=== PATIENT | female | born 1955 | race Caucasian/White ===

== ENCOUNTER → 2016-04-21 | Outpatient (CLI) | payer MEDICARE, OTHER ==
--- NOTE | 2016-04-21 12:49 | WOMENS IMAGING REPORT ---
EXAM DESCRIPTION: BILAT SCREENING MAMMO W/CAD COMPLETED DATE/TIME: 04/21/2016 10:03 am REASON FOR STUDY: Z12.31 ROUTINE SCREENING MAMMO Z12.31 ENCNTR SCREEN MAMMOGRAM FOR MALIGNANT NEOPL ASM OF CHARO COMPARISON: Multiple since 2008 TECHNIQUE: Standard craniocaudal and mediolateral oblique views of each breast recorded using OpenTexta l acquisition. LIMITATIONS: None. FINDINGS: Findings present which are benign by mammographic criteria. No suspicious masses, calcifi cations or architectural distortion. Read with the assistance of CAD. .[facility] - R2 Cenova Version 1.3 .[facility] Imaging - R2 Cenova Version 1.3 .[facility] Imaging - R2 Cenova Version 2.4 .[facility] [place] R2 Cenova Version 2.4 .[facility] - R2 Pe Electrical Engineer Version 9.2 Benign mammographic findings may include one or more of the following: Smooth masses, popcorn/rim/co arse calcifications, asymmetries, post-procedure changes, and lesions with long-standing stability. BREAST DENSITY: b. There are scattered areas of fibroglandular density. BIRAD: 2 BENIGN FINDING(S) RECOMMENDATION: ROUTINE SCREENING COMMENT: PATIENT NOTIFIED BY LETTER. The [employer] recommends an annual screening mammogram for women aged 40 years or over. Each patient will receive a reminder prior to the anniversary date of her mammogram. The [employer] (ACR) has developed recommendations for screening MRI of the breast s in certain patient populations, to be used in conjunction with mammography. Breast MRI surveillanc e may be appropriate for women with more than 20% lifetime risk of developing breast cancer as deter mined by genetic testing, significant family history of the disease, or history of mantle radiation f or Hodgkins Disease. ACR Practice Guidelines 2008. TECHNICAL DOCUMENTATION: FINDING NUMBER: (1) ASSESSMENT: (1) JOB ID: [id number] [id number] [employer]- All Rights Reserved
== END ==
LOC: WI 09:48
PROVIDERS: ATTEND Family Medicine
DX: Z12.31 Encounter for screening mammogram for malignant neoplasm of breast (principal)
CPT/HCPCS: 77067; G0202

== ENCOUNTER → 2018-04-20 | Outpatient (CLI) | payer MEDICARE, OTHER ==
--- NOTE | 2018-04-20 10:59 | WOMENS IMAGING REPORT ---
EXAM DESCRIPTION: 3D SCREENING MAMMO BILAT COMPLETED DATE/TIME: 04/20/2018 10:36 am REASON FOR STUDY: SCREENING MAMMO Z12.31 ENCNTR SCREEN MAMMOGRAM FOR MALIGNANT NEOPLASM OF CHARO COMPARISON: 04/21/2016 and 04/15/2015. TECHNIQUE: Standard craniocaudal and mediolateral oblique views of each breast recorded using digita l acquisition and breast tomosynthesis. LIMITATIONS: None. FINDINGS: Findings present which are benign by mammographic criteria. No suspicious masses, calcifi cations or architectural distortion. Pertinent benign findings: Benign calcifications. Read with the assistance of CAD. .[facility] - R2 Cenova Version 1.3 .[facility] Imaging - R2 Cenova Version 1.3 .[facility] Imaging - R2 Cenova Version 2.4 .[facility] - R2 Cenova Version 2.4 .[facility] - R2 Pen Tender Version 9.2 Benign mammographic findings may include one or more of the following: Smooth masses, popcorn/rim/co arse calcifications, asymmetries, post-procedure changes, and lesions with long-standing stability. IMPRESSION: BENIGN MAMMOGRAPHIC FINDINGS. BIRADS 2 BREAST DENSITY: a. The breasts are almost entirely fatty. BIRAD: 2 BENIGN FINDING(S) RECOMMENDATION: RECOMMENDATION: ROUTINE SCREENING COMMENT: The patient has been notified of the results by letter per [place] requirements. Additional no tification policies are in place for contacting patient with suspicious or incomplete findings. Quality ID #[id number]: The [employer] [employer] recommends an annual screening mammogram for women aged 40 years or over. This facility utilizes a reminder system to ensure that all patients receive reminder letters, and/or direct phone calls for appointments. This includes reminders for routine scr eening mammograms, diagnostic mammograms, or other Breast Imaging Interventions when appropriate. Th is patient will be placed in the appropriate reminder system. The [employer] (ACR) has developed recommendations for screening MRI of the breast s in certain patient populations, to be used in conjunction with mammography. Breast MRI surveillanc e may be appropriate for women with more than 20% lifetime risk of developing breast cancer as deter mined by genetic testing, significant family history of the disease, or history of mantle radiation f or Hodgkins Disease. ACR Practice Guidelines 2008. DBT Technology DBT is a type of tomographic mammography. With conventional mammography, overlapping breast tissue ma y make lesions difficult to detect, even with good compression. DBT uses an x-ray tube that rotates a round the breast, taking images at different angles. These images are then combined to create thin sl ices of the breast that the radiologist can view as a 3D reconstruction. The [employer] unit can perform full-field digital mammograms (2D imaging); or DBT (3D imaging); or both, in a combination mode that quickly performs both the mammogram and the tomosynthesis scan while the breast is still compressed. PQRS 6045F: Fluoroscopic imaging is not utilized for breast tomosynthesis. TECHNICAL DOCUMENTATION: FINDING NUMBER: (1) ASSESSMENT: (1) JOB ID: [id number] [employer]- All Rights Reserved Reading location - IP/workstation name: [email or web address]
== END ==
LOC: WI 13:10
PROVIDERS: ATTEND Family Medicine
DX: Z12.31 Encounter for screening mammogram for malignant neoplasm of breast (principal)
CPT/HCPCS: 77063; 77067

== ENCOUNTER 2018-07-01 10:05 | Emergency (ER) | payer MEDICARE, OTHER ==
--- NOTE | 2018-07-01 10:50 | ER Document Report ---
ED Medical Screen (RME) - General Chief Complaint: Irregular Pulse Stated Complaint: HEART RATE ISSUES Time Seen by Provider: 07/01/18 10:37 Primary Care Provider: CHERLY RENO MD [Primary Care Provider] - Follow up as needed Notes: 62-year-old female patient with no past medical history. She presents in a ventricular bigeminy rhythm. She reports the irregular heartbeat started on June 06, 2018 and was off and on for 3 days. She did not seek care at that time. The symptoms began again on 06/14/2018 and again were off and on for a few days. The symptoms started for the third episode on 06/26/2018 and have consists continue to be off and on. She is in the process of selling her house and moving to [place]. She has scheduled an appointment with airport operations crew member in [place] for July 14, 2018. The 12-lead EKG is complete the ventricular bigeminy. At this time palpating the pulse shows a regular pulse which is about twice as fast as the EKG normal QRSs. Every 6-8 beats there is a pause. The PVC cannot be palpated. I have greeted and performed a rapid initial assessment of this patient. A comprehensive ED assessment and evaluation of the patient, analysis of test results and completion of the medical decision making process will be conducted by additional ED providers. TRAVEL OUTSIDE OF THE [place] IN LAST 30 DAYS: No - Related Data Allergies/Adverse Reactions: latex [Latex] Allergy (Mild, Verified 07/01/18 10:06) itchy rash Nrjatsf-Zpi-Vjp Reductase Inhibitor Allergy (Mild, Verified 07/01/18 10:06) severe muscle/joint pain Past Medical History - Social History Chew tobacco use (# tins/day): No Frequency of alcohol use: None Drug Abuse: None - Past Medical History Cardiac Medical History: Denies: Hx Heart Attack, Hx Hypertension Pulmonary Medical History: Denies: Hx Asthma Neurological Medical History: Denies: Hx Cerebrovascular Accident, Hx Seizures Renal/ Medical History: Denies: Hx Peritoneal Dialysis GI Medical History: Reports: Hx Hepatitis. Denies: Hx Hiatal Hernia, Hx Ulcer Infectious Medical History: Reports: Hx Hepatitis Past Surgical History: Reports: Hx Tonsillectomy. Denies: Hx Hysterectomy, Hx Mastectomy, Hx Open Heart Surgery, Hx Pacemaker Physical Exam - Vital signs Vitals: Temp Pulse Resp BP Pulse Ox 97.7 F 97 16 137/103 H 97 07/01/18 10:09 07/01/18 10:09 07/01/18 10:09 07/01/18 10:09 07/01/18 10:09 Course - Vital Signs Vital signs: Temp Pulse Resp BP Pulse Ox 97.7 F 97 16 137/103 H 97 07/01/18 10:09 07/01/18 10:09 07/01/18 10:09 07/01/18 10:09 07/01/18 10:09 Doctor's Discharge - Discharge Referrals: CHERYL RENO MD [Primary Care Provider] - Follow up as needed
[2018-07-01 11:21] LABS: ABSOLUTE LYMPHOCYTES (AUTO) 1.5 10^3/uL (0.5-4.7); ABSOLUTE MONOCYTES (AUTO) 0.3 10^3/uL (0.1-1.4); ABSOLUTE NEUT (AUTO) 4.5 10^3/uL (1.7-8.2); BASOPHILS % (AUTO) 0.7 % (0-2); EOSINOPHILS % (AUTO) 0.5 % (0-6); HEMATOCRIT 42.1 % (36.0-47.0); HEMOGLOBIN 14.4 g/dL (12.0-15.5); LYMPHOCYTES % (AUTO) 23.8 % (13-45); MEAN CORPUSCULAR HEMOGLOBIN 32.5 pg (27.0-33.4); MEAN CORPUSCULAR HGB CONC 34.1 g/dL (32.0-36.0); MEAN CORPUSCULAR VOLUME 95 fl (80-97); MONOCYTES % (AUTO) 5.3 % (3-13); PLATELET COUNT 217 10^3/uL (150-450); RED BLOOD COUNT 4.42 10^6/uL (3.72-5.28); RED CELL DISTRIBUTION WIDTH 13.1 % (11.5-14.0); SEGMENTED NEUTROPHILS % (AUTO) 69.7 % (42-78); TOTAL CELLS COUNTED % (AUTO) 100 %; WHITE BLOOD COUNT 6.5 10^3/uL (4.0-10.5)
--- NOTE | 2018-07-01 11:26 | ER Document Report ---
ED Cardiac - General Chief Complaint: Irregular Pulse Stated Complaint: HEART RATE ISSUES Time Seen by Provider: 07/01/18 10:37 Primary Care Provider: CHERYL RENO MD [Primary Care Provider] - Follow up as needed TRAVEL OUTSIDE OF THE [place] IN LAST 30 DAYS: No - Related Data Allergies/Adverse Reactions: latex [Latex] Allergy (Mild, Verified 07/01/18 10:06) itchy rash Fwisoxf-Rur-Jdg Reductase Inhibitor Allergy (Mild, Verified 07/01/18 10:06) severe muscle/joint pain Past Medical History - Social History Smoking Status: Former Smoker Chew tobacco use (# tins/day): No Frequency of alcohol use: None Drug Abuse: None Patient has suicidal ideation: No Patient has homicidal ideation: No - Past Medical History Cardiac Medical History: Denies: Hx Heart Attack, Hx Hypertension Pulmonary Medical History: Denies: Hx Asthma Neurological Medical History: Denies: Hx Cerebrovascular Accident, Hx Seizures Renal/ Medical History: Denies: Hx Peritoneal Dialysis GI Medical History: Reports: Hx Hepatitis. Denies: Hx Hiatal Hernia, Hx Ulcer Infectious Medical History: Reports: Hx Hepatitis Past Surgical History: Reports: Hx Tonsillectomy. Denies: Hx Hysterectomy, Hx Mastectomy, Hx Open Heart Surgery, Hx Pacemaker Physical Exam - Vital signs Vitals: Temp Pulse Resp BP Pulse Ox 97.7 F 97 16 137/103 H 97 07/01/18 10:09 07/01/18 10:09 07/01/18 10:09 07/01/18 10:09 07/01/18 10:09 Course - Vital Signs Vital signs: Temp Pulse Resp BP Pulse Ox 97.7 F 97 16 137/103 H 97 07/01/18 10:09 07/01/18 10:09 07/01/18 10:09 07/01/18 10:09 07/01/18 10:09 - Laboratory Result Diagrams: 07/01/18 11:02 07/01/18 11:02 Discharge - Discharge Referrals: CHERYL RENO MD [Primary Care Provider] - Follow up as needed
--- NOTE | 2018-07-01 11:26 | ER Document Report ---
ED Cardiac - General Chief Complaint: Irregular Pulse Stated Complaint: HEART RATE ISSUES Time Seen by Provider: 07/01/18 10:37 Primary Care Provider: CHERYL RENO MD [Primary Care Provider] - Follow up as needed Notes: 62-year-old female to the emergency department chief complaint of palpitations. Patient states that she has had several feelings of palpitations. Is a retired cardiac nurse. States that she has felt a little short of breath but no chest pain. Denies any other symptoms at this time. Scheduled to see a lunchroom aide in [place]. In the process of moving. TRAVEL OUTSIDE OF THE [place] IN LAST 30 DAYS: No - HPI Patient complains to provider of: Palpitations Is the pain a: Chronic problem Quality of pain: None Severity now: None Severity at worst: Mild Pain level currently: Denies - Related Data Allergies/Adverse Reactions: latex [Latex] Allergy (Mild, Verified 07/01/18 10:06) itchy rash Hibkocq-Djr-Qmb Reductase Inhibitor Allergy (Mild, Verified 07/01/18 10:06) severe muscle/joint pain Past Medical History - General Information source: Patient - Social History Smoking Status: Former Smoker Chew tobacco use (# tins/day): No Frequency of alcohol use: None Drug Abuse: None Lives with: Family Family History: Reviewed & Not Pertinent Patient has suicidal ideation: No Patient has homicidal ideation: No - Past Medical History Cardiac Medical History: Denies: Hx Heart Attack, Hx Hypertension Pulmonary Medical History: Denies: Hx Asthma Neurological Medical History: Denies: Hx Cerebrovascular Accident, Hx Seizures Renal/ Medical History: Denies: Hx Peritoneal Dialysis GI Medical History: Reports: Hx Hepatitis. Denies: Hx Hiatal Hernia, Hx Ulcer Infectious Medical History: Reports: Hx Hepatitis Past Surgical History: Reports: Hx Tonsillectomy. Denies: Hx Hysterectomy, Hx Mastectomy, Hx Open Heart Surgery, Hx Pacemaker Review of Systems - Review of Systems Notes: Constitutional: denies: Chills, Diaphoresis, Fever, Malaise, Weakness EENT: denies: Eye discharge, Blurred vision, Tearing, Double vision, Nose congestion, Nose discharge, Throat swelling, Mouth pain Cardiovascular: denies: Heart racing, Orthopnea, Dyspnea, Chest pain. Palpitations Respiratory: denies: Cough, Hurts to breathe, Wheezing, Shortness of breath Gastrointestinal: denies: Abdominal pain, Diarrhea, Nausea, Vomiting, Black stools, bright red blood in stool Genitourinary: denies: Burning, Dysuria, Discharge, Frequency, Flank pain, Hematuria Musculoskeletal: denies: Joint pain, Joint swelling, Muscle pain, Muscle stiff ness, back pain Hematologic/Lymphatic: denies: Anemia, Easy bleeding, Easy bruising, Blood clots Neurological/Psychological: denies: Confusion, Dementia, Depression, Loss of consciousness Skin: No lesions, no masses, no skin breakdown, no abscesses Physical Exam - Vital signs Vitals: Temp Pulse Resp BP Pulse Ox 97.7 F 97 16 137/103 H 97 07/01/18 10:09 07/01/18 10:09 07/01/18 10:09 07/01/18 10:07/01/18 10:09 Interpretation: Normal - General General appearance: Appears well, Alert - HEENT Head: Normocephalic, Atraumatic Eyes: Normal Pupils: PERRL - Respiratory Respiratory status: No respiratory distress Chest status: Nontender Breath sounds: Normal Chest palpation: Normal - Cardiovascular Rhythm: Regular Heart sounds: Normal auscultation Murmur: No Notes: Frequent PVCs auscultated - Abdominal Inspection: Normal Distension: No distension Bowel sounds: Normal Tenderness: Nontender Organomegaly: No organomegaly - Back Back: Normal, Nontender - Extremities General upper extremity: Normal inspection, Nontender, Normal color, Normal ROM, Normal temperature General lower extremity: Normal inspection, Nontender, Normal color, Normal ROM, Normal temperature, Normal weight bearing. No: Yissel's sign - Neurological Neuro grossly intact: Yes Cognition: Normal Orientation: AAOx4 [place] Coma Scale Eye Opening: Spontaneous Sujit Coma Scale Verbal: Oriented [place] Coma Scale Motor: Obeys Commands [place] Coma Scale Total: 15 Speech: Normal Motor strength normal: LUE, RUE, LLE, RLE Sensory: Normal - Psychological Associated symptoms: Normal affect, Normal mood - Skin Skin Temperature: Warm Skin Moisture: Dry Skin Color: Normal Course - Re-evaluation Re-evalutation: 07/01/18 13:42 Patient is well-appearing. Labs are normal. Has frequent PVCs on the monitor. No long runs of ventricular beats. Patient describes the symptoms happening for quite some time. Currently I am thinking about putting her on 12.5 and metoprolol twice a day. 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 I do not believe that she is having any major issues. Low risk for cardiac disease. Patient is comfortable with this plan currently I will discharge her with outpatient follow-up with a lunchroom aide. Results have been given to the patient. I did discuss with her scheduling an outpatient CT scan based on her x-ray results. 07/01/18 18:35 Laboratory 07/01/18 07/01/18 07/01/18 11:02 11:02 11:02 WBC 6.5 RBC 4.42 Hgb 14.4 Hct 42.1 MCV 95 MCH 32.5 MCHC 34.1 RDW 13.1 Plt Count 217 Seg Neutrophils % 69.7 Lymphocytes % 23.8 Monocytes % 5.3 Eosinophils % 0.5 Basophils % 0.7 Absolute Neutrophils 4.5 Absolute Lymphocytes 1.5 Absolute Monocytes 0.3 Absolute Eosinophils 0.0 Absolute Basophils 0.0 Sodium 141.3 Potassium 4.0 Chloride 103 Carbon Dioxide 30 Anion Gap 8 BUN 15 Creatinine 0.64 Est GFR ( Amer) > 60 Est GFR (Non-Af Amer) > 60 Glucose 101 Calcium 10.3 H Magnesium 2.2 Total Bilirubin 0.6 Direct Bilirubin 0.2 Neonat Total Bilirubin Not Reportable Neonat Direct Bilirubin Not Reportable Neonat Indirect Bili Not Reportable AST 30 ALT 20 Alkaline Phosphatase 60 Creatine Kinase 106 CK-MB (CK-2) 1.17 Troponin I < 0.012 Total Protein 7.7 Albumin 4.6 TSH Free T4 Free T3 pg/mL 07/01/18 11:02 WBC RBC Hgb Hct MCV MCH MCHC RDW Plt Count Seg Neutrophils % Lymphocytes % Monocytes % Eosinophils % Basophils % Absolute Neutrophils Absolute Lymphocytes Absolute Monocytes Absolute Eosinophils Absolute Basophils Sodium Potassium Chloride Carbon Dioxide Anion Gap BUN Creatinine Est GFR ( Amer) Est GFR (Non-Af Amer) Glucose Calcium Magnesium Total Bilirubin Direct Bilirubin Neonat Total Bilirubin Neonat Direct Bilirubin Neonat Indirect Bili AST ALT Alkaline Phosphatase Creatine Kinase CK-MB (CK-2) Troponin I Total Protein Albumin TSH 1.37 Free T4 1.20 Free T3 pg/mL 3.42 Chest X-Ray 07/01/18 10:47 IMPRESSION: DIFFUSE INTERSTITIAL PROMINENCE, PROBABLY CHRONIC. QUESTIONABLE NODULE IN THE RIGHT LUNG APEX VERSUS ARTIFACT FROM THE END OF THE RIGHT 1ST RIB. NO APPARENT ACUTE FINDINGS. MAY CONSIDER CT OF THE CHEST AT SOME POINT FOR FURTHER EVALUATION. 07/01/18 18:35 - Vital Signs Vital signs: Temp Pulse Resp BP Pulse Ox 98.1 F 97 18 123/78 99 07/01/18 13:54 07/01/18 10:09 07/01/18 13:54 07/01/18 13:54 07/01/18 13:54 - Laboratory Result Diagrams: 07/01/18 11:02 07/01/18 11:02 Laboratory results interpreted by me: 07/01/18 11:02 Calcium 10.3 H - EKG Interpretation by Me EKG shows normal: Sinus rhythm, [place], Intervals, QRS Complexes, ST-T Waves Rhythm: PVC's - Bigeminy Discharge - Discharge Clinical Impression: PVC (premature ventricular contraction) Condition: Good Disposition: HOME, SELF-CARE Instructions: PVCs ([facility]) Additional Instructions: We are starting you on a very low dose of a medication called metoprolol which is a beta-karely. This may help to reduce the premature ventricular contractions. In the event that you develop significantly low heart rates persistently in the 40s and 50s you may need to reduce the dose to only once a day. In the event that you begin to develop chest pain, worsening palpitations, shortness of breath or other symptoms please return for repeat evaluation. We have provided you follow-up information for lunchroom aide locally. Please feel free to make an appointment with lunchroom aide as soon as possible. Prescriptions: Metoprolol Tartrate [Lopressor 25 mg Tablet] 12.5 mg PO Q12 30 Days #60 tab Referrals: CHERYL RENO MD [Primary Care Provider] - Follow up as needed
[2018-07-01 11:32] LABS: ALANINE AMINOTRANSFERASE 20 U/L (9-52); ALBUMIN 4.6 g/dL (3.5-5.0); ALKALINE PHOSPHATASE 60 U/L (38-126); ANION GAP 8 (5-19); ASPARTATE AMINO TRANSFERASE 30 U/L (14-36); BILIRUBIN,DIRECT 0.2 mg/dL (0.0-0.4); BILIRUBIN,TOTAL 0.6 mg/dL (0.2-1.3); BLOOD UREA NITROGEN 15 mg/dL (7-20); CALCIUM 10.3 mg/dL (8.4-10.2); CARBON DIOXIDE 30 mmol/L (22-30); CHLORIDE 103 mmol/L (98-107); CREATINE KINASE 106 U/L (30-135); GLUCOSE 101 mg/dL (75-110); SODIUM 141.3 mmol/L (137-145); TOTAL PROTEIN 7.7 g/dL (6.3-8.2)
[2018-07-01 11:44] LABS: CREATINE KINASE MB 1.17 ng/mL (<4.55); TROPONIN I < 0.012 ng/mL
[2018-07-01 11:49] LABS: FREE T3 3.42 pg/mL (2.77-5.27); FREE T4 (FREE THYROXINE) 1.2 ng/dL (0.78-2.19)
[2018-07-01 12:03] LABS: THYROID STIMULATING HORMONE 1.37 uIU/mL (0.47-4.68)
[2018-07-01] MEDS ORDERED: METOPROLOL TARTRATE 25 MG TABLET PO ONE (12:35)
--- NOTE | 2018-07-01 12:38 | RADIOLOGY REPORT (SQ) ---
EXAM DESCRIPTION: CHEST 2 VIEWS COMPLETED DATE/TIME: 07/01/2018 11:26 am REASON FOR STUDY: Ventricular bigeminy, palpitations COMPARISON: None. EXAM PARAMETERS: NUMBER OF VIEWS: two views TECHNIQUE: Digital Frontal and Lateral radiographic views of the chest acquired. RADIATION DOSE: NA LIMITATIONS: none FINDINGS: LUNGS AND PLEURA: Diffuse interstitial prominence. Possible nodule in the right upper lob e, located at the end of the right 1st rib. No focal infiltrate. No pleural effusion. MEDIASTINUM AND HILAR STRUCTURES: No masses or contour abnormalities. HEART AND VASCULAR STRUCTURES: Heart normal size. No evidence for failure. BONES: No acute findings. HARDWARE: None in the chest. OTHER: No other significant finding. IMPRESSION: DIFFUSE INTERSTITIAL PROMINENCE, PROBABLY CHRONIC. QUESTIONABLE NODULE IN THE RIGHT TRAVIS G APEX VERSUS ARTIFACT FROM THE END OF THE RIGHT 1ST RIB. NO APPARENT ACUTE FINDINGS. MAY CONSIDER CT OF THE CHEST AT SOME POINT FOR FURTHER EVALUATION. TECHNICAL DOCUMENTATION: JOB ID: [id number] [email or web address]- All Rights Reserved Reading location - IP/workstation name: [email or web address]
[2018-07-01 14:02] VITALS: BP 123/78
--- NOTE | 2018-07-01 19:17 | EKG REPORT ---
SEVERITY:- ABNORMAL ECG - SINUS RHYTHM VENTRICULAR BIGEMINY SHORT ND INTERVAL, ACCELERATED AV CONDUCTION : Confirmed by: Tahmina Bland MD 01-Jul-2018 19:16:53
== END 2018-07-01 13:54 | disposition home or self-care (01) ==
LOC: ER 10:05
DX: I49.3 Ventricular premature depolarization (principal); R06.02 Shortness of breath; Z91.040 Latex allergy status
CPT/HCPCS: 93005; 99285; 36415; 84439; 82553; 82550; 83735; 84443; 85025; 80053; 84484; 84481; 71046; 93010; A9270

== ENCOUNTER → 2018-08-09 | Outpatient (CLI) | payer MEDICARE, OTHER ==
--- NOTE | 2018-08-09 08:45 | RADIOLOGY REPORT (SQ) ---
EXAM DESCRIPTION: CT CHEST WITHOUT COMPLETED DATE/TIME: 08/09/2018 7:28 am REASON FOR STUDY: SOLITARY PULMONARY NODULE (R91.1), PULMONARY FIBROSIS (J84.10) R91.1 SOLITARY PUL MONARY NODULE J84.10 PULMONARY FIBROSIS, UNSPECIFIED COMPARISON: 07/01/2018 radiograph TECHNIQUE: CT scan performed of the chest without intravenous contrast. Images reviewed with lung, soft tissue and bone windows. Reconstructed coronal and sagittal MPR images reviewed. All images st ored on PACS. All CT scanners at this facility use dose modulation, iterative reconstruction, and/or weight based d osing when appropriate to reduce radiation dose to as low as reasonably achievable (ALARA). [facility]: Dose Right [facility]: CareDose [facility]: Dose Right [facility]: Teradose 4D [facility]: CTAdventure [facility] [facility] RADIATION DOSE: CT Rad equipment meets quality standard of care and radiation dose reduction techniq ues were employed. CTDIvol: 4.4 mGy. DLP: 168 mGy-cm. mGy. LIMITATIONS: No technical limitations. FINDINGS: LUNGS AND PLEURA: Lungs demonstrate basilar predominant interlobular septal thickening, br onchiectasis and honeycombing. Upper lobe predominant emphysema. Scattered areas of associated grou nd-glass attenuation without dense consolidation. No discrete nodule to correspond to previously rosmery cribed radiographic finding. No pleural effusion. No pneumothorax. HILAR AND MEDIASTINAL STRUCTURES: Enlarged pretracheal node measuring up to 1.2 cm in short axis (ser ies 2, image 23). No discrete hilar or axillary adenopathy. HEART AND VASCULAR STRUCTURES: Normal heart size. Scattered coronary atherosclerosis. No significan t pericardial effusion. UPPER ABDOMEN: Cholelithiasis. THYROID AND OTHER SOFT TISSUES: No masses. No adenopathy. BONES: No significant finding. HARDWARE: None in the chest. OTHER: No other significant findings. IMPRESSION: 1. No discrete nodule corresponding to previously described radiographic finding. 2. Basilar predominant interstitial fibrotic change with interlobular septal thickening, bronchiecta sis and honeycombing suggestive of usual interstitial pneumonia. 3. Enlarged mediastinal lymph node, etiology uncertain. 4. Cholelithiasis. TECHNICAL DOCUMENTATION: JOB ID: [id number] Quality ID # [id number]: Final reports with documentation of one or more dose reduction techniques (e.g., Au tomated exposure control, adjustment of the mA and/or kV according to patient size, use of iterative reconstruction technique) 2010 [email or web address]- All Rights Reserved Reading location - IP/workstation name: [email or web address]
== END ==
LOC: RAD 07:04
PROVIDERS: ATTEND Family Medicine
DX: R91.1 Solitary pulmonary nodule (principal); J84.10 Pulmonary fibrosis, unspecified
CPT/HCPCS: 71250